=== PATIENT | male | born 1935 | race Caucasian/White ===

== ENCOUNTER → 2018-10-17 | Outpatient (CLI) | payer MEDICARE | END | disposition home or self-care (01) | LOC: RAH 10:27 | PROVIDERS: ATTEND Urology | DX: N13.1 Hydronephrosis with ureteral stricture, not elsewhere classified (principal); M47.815 Spondylosis without myelopathy or radiculopathy, thoracolumbar region | CPT/HCPCS: 74018; 76100 ==

== ENCOUNTER → 2020-01-12 | Outpatient (CLI) | payer MEDICARE ==
[~2020-01-12] MED LIST: FUROSEMIDE 10 MG/ML 4ML VIAL ONE
== END | disposition home or self-care (01) ==
LOC: RAH 13:32
PROVIDERS: ATTEND Urology
DX: N13.39 Other hydronephrosis (principal)
CPT/HCPCS: 78708; A9562; J1940